=== PATIENT | female | born 1960 | race Caucasian/White ===

== ENCOUNTER 2018-10-14 13:53 | Emergency (ER) | payer BC ==
--- NOTE | 2018-10-14 14:37 | UC ---
Ear Complaint HPI - HPI Summary HPI Summary: Patient is 58 year old female, who present today to the urgent care with sinus pressure and headache along with fullness in bilateral ears with decreased hearing for past 7 days. She denies any ear pain. Headache is mainly localized in the frontal and left maxillary area and worsens with bending over. She does have sick contacts at work and her grandchildren with upper respiratory symptoms. She does have a history of sinusitis in the past. She denies any difficulty swallowing. Denies any fever, chills, cough chest pain or shortness of breath . No diaphoresis. Denies any abdominal pain , nausea or vomiting , diarrhea or constipation. Patient tried over the counter medication- NyQuil and DayQuil without much relief. - History of Current Complaint Stated Complaint: SINUSES/EAR ACHE Time Seen by Provider: 10/14/18 14:35 Hx Obtained From: Patient Hx Last Menstrual Period: 06/21/14 ?: No - Allergies/Home Medications Allergies/Adverse Reactions: Allergies Allergy/AdvReac Type Severity Reaction Status Date / Time latex Allergy Rash Verified 10/14/18 14:43 Penicillins Allergy Rash Verified 10/14/18 14:43 Sulfa (Sulfonamide Allergy Itching Verified 10/14/18 14:43 Antibiotics) Home Medications: Home Medications Biotin 1 mg PO DAILY 10/14/18 [History Confirmed 10/14/18] Bupropion XL* [Wellbutrin XL *] 150 mg PO DAILY 10/14/18 [History Confirmed 12/31] Cholecalciferol (Vitamin D3) [Vitamin D3] 5,000 unit PO DAILY 10/14/18 [History Confirmed 10/14/18] Docusate CAP* [Colace Cap*] 100 mg PO BID 10/14/18 [History Confirmed 10/14/18] FLUoxetine CAP* [PROzac CAP*] 40 mg PO DAILY 10/14/18 [History Confirmed ] Ferrous Sulfate [Iron] 325 mg PO DAILY 10/14/18 [History Confirmed 10/14/18] Vitamin B Complex CAP* [B Complex CAP*] 1 cap PO DAILY 10/14/18 [History Confirmed 10/14/18] PMH/Surg Hx/FS Hx/Imm Hx - Additional Past Medical History Additional PMH: Depression Anemia Sinusitis Previously Healthy: Yes Other Endocrine History: negative Other Cardiovascular History: negative Respiratory History: Other - Sinusitis - Surgical History Surgical History: Yes Surgery Procedure, Year, and Place: Right ankle surgery, gastric bypass, gallbladder removal, tubal ligationLASER - EYE SURGLt BREAST BIOPSY - W/ CLIP - Family History Known Family History: Positive: Hypertension, Other - mom lung CA - Social History Alcohol Use: Occasionally Substance Use Type: None Smoking Status (MU): Light Every Day Tobacco Smoker Type: Cigarettes Amount Used/How Often: 1/3 PPD Household Exposure Type: Cigarettes Review of Systems All Other Systems Reviewed And Are Negative: Yes Constitutional: Positive: Negative Skin: Positive: Negative Eyes: Positive: Negative ENT: Positive: Sinus Pain/Tenderness, Other - Fullness in the ear bilaterally Respiratory: Positive: Negative Cardiovascular: Positive: Negative Gastrointestinal: Positive: Negative Genitourinary: Positive: Negative Motor: Positive: Negative Neurovascular: Positive: Negative Musculoskeletal: Positive: Negative Neurological: Positive: Headache - Frontal headache Psychological: Positive: Negative Is Patient Immunocompromised?: No Physical Exam - Summary Physical Exam Summary: Physical Exam: Const: Appears well. No signs of apparent distress present. Alert and oriented x 3. Musculo: Walks with a normal gait. Head/Face: Atraumatic, normocephalic on inspection. Eyes: EOMI and PERRLA in both eyes. Conjunctivae clear. No discharge noted ENT: There is tenderness to palpation in bilateral frontal and left ethmoid sinus and the left maxillary sinus TM normal appearing bilaterally , external auditory canal without any lesion mild pharyngeal erythema, no exudates No lymphadenopathy Respiratory: Respirations are unlabored. Lungs clear to auscultation bilaterally, no wheezing , rhonchi or rales noted . CVS: Regular rate and Rhythm, S1S2 normal , no murmurs identified. Extremities: Peripheral circulation is grossly normal. Pulses 2+ Abdomen : Soft non tender , nondistended , Bowel sounds present . No guarding , rebound tenderness or rigidity noted. Skin: No lesions or rash located on the upper extremities or on the lower extremities. Neuro: Cranial nerves II to XII intact, motor and sensory intact. DTR Intact bilaterally. Mood is normal. Affect is normal. Triage Information Reviewed: Yes Vital Signs Reviewed: Yes Ear Complaint Course/Dx - Course Course Of Treatment: During the visit today, we discussed the findings and further plan. She is allergic to penicillin and sulfa, so plan to treat sinusitis with doxycycline. Fullness in the both ear and decreased hearing appears to be secondary to eustachian tube dysfunction.I will prescribe the medication to the pharmacy . Patient expressed understanding . - Differential Dx/Diagnosis Provider Diagnosis: Sinusitis, Eustachian tube dysfunction Discharge - Sign-Out/Discharge Documenting (check all that apply): Patient Departure All imaging exams completed and their final reports reviewed: No Studies - Discharge Plan Condition: Stable Disposition: HOME Prescriptions: DOXYcycline CAP(*) [DOXYcycline 100MG CAP(*)] 100 mg PO BID 14 Days #28 cap Patient Education Materials: Sinusitis (ED) Referrals: Shelton Berkowitz MD [Primary Care Provider] - 1 Week Additional Instructions: Please start taking the medication as prescribed to the pharmacy . Follow up with your primary care doctor in 1 week. Patients blood pressure slightly high in Urgent care today , plan follow up with PCP for better control Return to Urgent care / ER if symptoms get worse. - Billing Disposition and Condition Condition: STABLE Disposition: Home
[2018-10-14 14:39] VITALS: BP 143/80
== END 2018-10-14 15:00 | disposition home or self-care (01) ==
LOC: UCCORT 13:53
DX: J32.9 Chronic sinusitis, unspecified (principal); H69.83 Other specified disorders of Eustachian tube, bilateral; Z88.0 Allergy status to penicillin; Z88.2 Allergy status to sulfonamides; F32.9 Major depressive disorder, single episode, unspecified; D64.9 Anemia, unspecified; F17.210 Nicotine dependence, cigarettes, uncomplicated
CPT/HCPCS: 99212; G0463

== ENCOUNTER 2019-05-25 15:05 | Emergency (ER) | payer BC ==
--- NOTE | 2019-05-25 15:53 | UC ---
UC General HPI - HPI Summary HPI Summary: pt is c/o episodes of sharp pain in her L back x 3 days with urinary frequency, urgency and burning as well. the pain makes her "squirm" at times. she denies fever, abdominal pain n/v/d and hx kidney stones. no change with movement. no numb, tingling or weakness to her extremities. no bowel/bladder dysfunction and no saddle anesthesia. pt reports being in menopause x 3 months and is refusing a test. denies hx kidney stones. - History of Current Complaint Chief Complaint: UCGU Stated Complaint: URINARY Time Seen by Provider: 05/25/19 15:37 Hx Obtained From: Patient Hx Last Menstrual Period: 06/21/14 Pain Intensity: 4 Aggravating: nothing Alleviating: "squirming" - Allergy/Home Medications Allergies/Adverse Reactions: Allergies Allergy/AdvReac Type Severity Reaction Status Date / Time latex Allergy Rash Verified 05/25/19 15:22 Penicillins Allergy Rash Verified 05/25/19 15:22 Sulfa (Sulfonamide Allergy Itching Verified 05/25/19 15:22 Antibiotics) Home Medications: Home Medications Ibuprofen 800 mg PO ONCE 05/25/19 [History Confirmed 05/25/19] PMH/Surg Hx/FS Hx/Imm Hx - Additional Past Medical History Additional PMH: Iron deficiency anemia-prior hx transfusion GI/ History: Gastroesophageal Reflux Psychological History: Depression - Surgical History Surgical History: Yes Surgery Procedure, Year, and Place: Right ankle surgery, gastric bypass 2008, gallbladder removal, tubal ligation, LASER - EYE SURGLt BREAST BIOPSY - W/ CLIP - Family History Known Family History: Positive: Hypertension, Other - mom lung CA - Social History Lives: With Family Alcohol Use: Occasionally Substance Use Type: None Smoking Status (MU): Light Every Day Tobacco Smoker Type: Cigarettes Amount Used/How Often: 1/3 PPD Household Exposure Type: Cigarettes Review of Systems All Other Systems Reviewed And Are Negative: Yes Constitutional: Negative: Fever, Chills Skin: Negative: Rash Gastrointestinal: Negative: Abdominal Pain, Vomiting, Diarrhea, Nausea Genitourinary: Positive: Dysuria, Frequency, Urgency. Negative: Hematuria, Vaginal/Penile Discharge, Abnormal Bleeding Motor: Positive: Negative Neurovascular: Positive: Negative Musculoskeletal: Positive: Negative Physical Exam Triage Information Reviewed: Yes Appearance: Well-Appearing Vital Signs: Initial Vital Signs Temp 97.9 F 05/25/19 15:14 Pulse 87 05/25/19 15:14 Resp 16 05/25/19 15:14 BP 132/72 05/25/19 15:14 Pulse Ox 96 05/25/19 15:14 Vital Signs Reviewed: Yes Eyes: Positive: Conjunctiva Clear Neck: Positive: Supple, Other: - no c-spine tenderness. Respiratory: Positive: Lungs clear, Normal breath sounds, No respiratory distress Cardiovascular: Positive: RRR, No Murmur Abdomen Description: Positive: Nontender, No Organomegaly, Soft. Negative: CVA Tenderness (R), CVA Tenderness (L), Distended, Guarding Bowel Sounds: Positive: Present Musculoskeletal: Positive: Other: - Back: no deformity, swelling, tenderness or rash. ROM intact throughout and painless. s/v/m is intactx4. Neurological: Positive: Alert Psychological: Positive: Age Appropriate Behavior Skin Exam: Normal Skin: Negative: Rashes Diagnostics - Laboratory Lab Results: u/a=3+ leukocytes, 2+ blood, trace protein with culture pending. - Radiology No standard instances Radiology Interpretation Completed By: Radiologist - IMPRESSION: #. Severe pelvicaliectasis of the LEFT kidney. Only mild dilatation of the LEFT ureter. 0.15 cm far distal LEFT ureteral stone 1 cm from the ureterovesicular junction. While the stone may account for the hydroureteronephrosis given the disproportionate dilatation of the intrarenal collecting system and pelvis relative to the ureter there may also be a component of ureteropelvic junction stenosis. Absence of appreciable perinephric inflammatory stranding is further evidence against the severe pelvicaliectasis being solely attributable to acute ureteral stone. Re-Evaluation - Re-Evaluation Second Eval Change: Unchanged - pt has remained stable during her stay and declined pain medications. Third Eval Re-Evaluation Time: 19:24 Change: Unchanged - pt reports feeling fine post tx here. Course/Dx - Course Course Of Treatment: Case D/W Dr Yadav, [facility] supervisor [employer] urologist. I advised of pt hx, pe and read him the CT report and u/a findings. He request I tx the pt with Rocephin 2g iv or im and 2L NS IV. upon discharge, given prescription for pain medications and cefdinir 300mg BID x 7 days. pt is to call his office Monday am for f/u. If still having pain, they will see her that same day. If pt develops a fever >101, she is to go to the ER([facility]) immediately. Dr Mitchell request that I send a CBC and BMP as well. pcn allergy was hives as a child. - Differential Dx - Multi-Symptom Differential Diagnoses: Other - no s/s's of pyelonephritis - Diagnoses Provider Diagnosis: Ureteral calculus, left, Pelvicaliectasis, Dysuria Discharge - Sign-Out/Discharge Documenting (check all that apply): Patient Departure All imaging exams completed and their final reports reviewed: Yes - Discharge Plan Condition: Stable Disposition: HOME Prescriptions: Cefdinir [Cefdinir 300 MG CAP] 300 mg PO BID 7 Days #14 capsule Hydrocodone/Acetaminophen [Vicodin 5-300 mg Tablet] 1 each PO Q6H PRN #10 tablet MDD 4 PRN Reason: Pain Patient Education Materials: Dysuria (ED), Hydronephrosis (ED), Ureteral Stones (ED) Referrals: David Yadav MD [Medical Doctor] - Additional Instructions: CALL THE OFFICE MONDAY AM(05/27/19) FOR FOLLOW UP. PER DR LONG, GO TO THE ER FOR A FEVER GREATER THAN 101. - Billing Disposition and Condition Condition: STABLE Disposition: Home
[2019-05-25] MEDS ORDERED: NS 0.9% 1000 ML** 1,000 ML IV ONE ×2 (17:24→17:32)
[2019-05-25] MEDS ORDERED: cefTRIAXone VIAL(*) 1,000 MG VIAL IVPB ONE (17:26)
[2019-05-25 19:30] VITALS: BP 157/85
[2019-05-26 14:31] LABS: ABS Basophils 0.1 10^3/ul (0-0.2); ABS Eosinophils 0.2 10^3/ul (0-0.6); ABS Lymphocytes 2.4 10^3/ul (1.0-4.8); ABS Monocytes 1.2 10^3/ul (0-0.8); ABS Neutrophils 5.2 10^3/ul (1.5-7.7); Eosinophil % 2.4 %; Hematocrit 38 % (35-47); Hemoglobin 12.3 g/dL (12.0-16.0); Mean Corpuscular HGB Conc 32 g/dL (31-36); Mean Corpuscular Hemoglobin 26 pg (27-31); Mean Corpuscular Volume 80 fL (80-97); Mean Platelet Volume 9.7 fL (7.4-10.4); Nucleated Red Blood Cells % 0.2; Platelet Count 196 10^3/uL (150-450); Red Blood Count 4.77 10^6 /uL (3.70-4.87); Red Cell Distribution Width 21 % (10-15); White Blood Count 9.1 10^3/uL (3.5-10.8)
[2019-05-26 14:40] LABS: BUN/Creatinine Ratio 18.9 (8-20); Calcium 9.6 mg/dL (8.6-10.3); EGFR African American 97.9 (>60); EGFR Non-African American 80.9 (>60); Potassium 4.9 mmol/L (3.5-5.0)
== END 2019-05-25 19:30 | disposition home or self-care (01) ==
LOC: UCCORT 15:05
DX: N20.1 Calculus of ureter (principal); N13.0 Hydronephrosis with ureteropelvic junction obstruction; R30.0 Dysuria; F17.210 Nicotine dependence, cigarettes, uncomplicated
CPT/HCPCS: 36415; 74176; 80048; 81003; 85025; 87077; 87086; 87186; 96361; 96365; 99212; G0463; J0696

== ENCOUNTER → 2019-11-05 09:02 | Day surgery (SDC) | payer BC ==
--- NOTE | 2019-11-04 12:12 | HP ---
CC: Dr. Monica Fernández; Dr. Dio Valencia, Department of Urology, [facility]; Dr. Yadav ADMITTING HISTORY AND PHYSICAL: DATE OF ADMISSION: 11/05/19 ADMITTING DIAGNOSES: 1. Left hydronephrosis. 2. Probable left ureteropelvic junction obstruction. PLANNED PROCEDURE: Left retrograde left stent insertion (may need left pyeloplasty in the near futur e). SURGEON: Dr. Yadav. HISTORY OF PRESENT ILLNESS: Sera Varela is a 59-year-old lady who I had originally evaluated about 4 to 5 months ago because of left flank pain. She was noted at that time to have left hydronep hrosis with a tiny calculus in the left distal ureter. She had undergone left ureteroscopy and ballo on dilatation of narrowed left ureteropelvic junction and left stent insertion on 07/01/[address] was left in for several weeks and eventually removed on 08/23/19. She did well for the last 2 mo nths, but for the last few days started having increasing left flank discomfort and an ultrasound rev ealed recurrence of left hydronephrosis with increased renal cortical echogenicity and an absent left ureteral jet. PAST MEDICAL HISTORY: Significant for: 1. Left hydronephrosis. 2. Gastroesophageal reflux. 3. Depression. PAST SURGICAL HISTORY: Significant for: 1. Left stent insertion in June of 2019. 2. Gastric bypass in 2008. 3. Cholecystectomy. 4. Tubal ligation. 5. Right ankle fracture surgery. MEDICATIONS ON ADMISSION: 1. Prozac 40 mg a day. 2. Wellbutrin 100 mg daily. 3. Omeprazole 20 mg b.i.d. 4. Oxybutynin 5 mg b.i.d. ALLERGIES AND INTOLERANCES: SULFA, PENICILLIN, and LATEX (rash with all three). FAMILY HISTORY: Negative for renal calculi. SOCIAL HISTORY: Smoking history: She has been a smoker episodically for the last 30 years. REVIEW OF SYSTEMS: She is otherwise in excellent health. There is no history of diabetes mellitus o r any other major systemic illness. She denies any chest pain or shortness of breath. PHYSICAL EXAMINATION GENERAL: Reveals a pleasant, uncomfortable appearing middle-aged lady. VITAL SIGNS: Blood pressure is 136/80, pulse 73 per minute and regular, oxygen saturation 98% on gerson m air, and temperature 98.6. CARDIOVASCULAR: Regular rate and rhythm. S1, S2. ABDOMEN: Soft with left flank tenderness. IMPRESSION AND PLAN: A 59-year-old lady with recurrent left hydronephrosis and left flank pain. Pl anned procedure is left retrograde and left stent insertion. Depending on the findings on retrograde, she may be a candidate for a robotic left pyeloplasty, in which case I would refer her to Dr. Ronna bernard at [facility] for that. I have discussed this with the patient in detail. [id number]/[facility] #: [id number]
[~2019-11-05 09:02] MED LIST: Buffered Lidocaine 1% SYRIN* 1 ML/SYRINGE INTRADERM ONE; Dexamethasone IV* 4 MG/ML 1 ML (4 MG) IV SLOW PU ONE; Dexamethasone IV* 4 MG/ML 1 ML (4 MG) ONE; DiMENhydriNATE IV* 50 MG/ML VIAL IV PUSH PRN; Famotidine IV* 10 MG/ML 2 ML (20 mg) IV ONE; Famotidine IV* 10 MG/ML 2 ML (20 mg) ONE; Gentamicin ADULT (*) 160 MG in NS 0.9% 100 ML* 100 ML IVPB ONE; HYDROcodone/ACETAMIN 5-325 MG* 1 TAB PO PRN; Iohexol 180 (CONTRAST) 10 ML SDV IV ONE; Ketorolac INJ* 30 MG/ML 1 ML VIAL IV PRN; Lactated Ringers 1000 ML Bag* 1,000 ML IV SCH; Levofloxacin 500 MG IVPREMIX(* 500 MG/100 ML BAG IVPB ONE; Lidocaine 2% PF * 5 ML VIAL ONE; Midazolam* 1 MG/ML 5 ML VIAL (5 MG) ONE; Naloxone* 0.4 MG/ML 1 ML VIAL IV PRN; Ondansetron INJ* 2 MG/ML VIAL ONE; Propofol* 10 MG/ML 20 ML BTL ONE; fentaNYL* 50 MCG/ML 2 ML VIAL (100 MCG VIAL) IV PRN; fentaNYL* 50 MCG/ML 2 ML VIAL (100 MCG VIAL) ONE; oxyCODONE TAB* 5 MG TAB PO PRN
[2019-11-05 13:04] VITALS: BP 130/83
--- NOTE | 2019-11-05 20:53 | OP ---
CC: Dr. Fernández; Dr. Siva Valencia, Department of Urology, [facility]; Dr. Yadav* OPERATIVE REPORT: DATE OF OPERATION: 11/05/19 - [facility] DATE OF : 62 SURGEON: David Yadav MD ANESTHESIOLOGIST: Dr. Barber. ANESTHESIA: General. PRE-OP DIAGNOSES: 1. Left hydronephrosis. 2. Left ureteropelvic junction obstruction. POST-OP DIAGNOSES: 1. Left hydronephrosis. 2. Left ureteropelvic junction obstruction. OPERATIVE PROCEDURE: Cystoscopy, left retrograde pyelogram, left stent insertion. COMPLICATIONS: None. STENT USED: A 7-[place] Vermillion universal-length stent. OPERATIVE FINDINGS: Left hydronephrosis with a markedly dilated left renal pelvis and an appearance consistent with left ureteropelvic junction obstruction. POSTOPERATIVE CONDITION: Stable. INDICATION: Sera Varela is a 59-year-old lady who had previously undergone left stent insertion with improvement in the hydronephrosis. She subsequently underwent stent removal and did well for a few months, but recently started having recurrence of left flank pain and was noted to have left hydronephrosis. DESCRIPTION OF PROCEDURE: After induction of general anesthesia, the patient was placed in dorsal lithotomy position. Sequential compression devices were in place and functioning. Initial evaluation revealed a normal-appearing bladder with a couple of small areas of hyperemic mucosa which may be related to a recent infection. A left retrograde pyelogram revealed significant degree of left hydronephrosis with a dilated renal pelvis and narrowing at the ureteropelvic junction. The guidewire was advanced into the proximal collecting system and then a 7-[place] Vermillion stent was introduced and positioned under fluoroscopy with good proximal and distal positioning obtained. The bladder was emptied. The patient tolerated the procedure satisfactorily and was transferred back to the recovery area in stable condition. [id number]/[facility] #: [id number] MTDD
== END | disposition home or self-care (01) ==
LOC: OR 09:02
PROVIDERS: ATTEND Urology
DX: N13.0 Hydronephrosis with ureteropelvic junction obstruction (principal); K21.9 Gastro-esophageal reflux disease without esophagitis; F32.9 Major depressive disorder, single episode, unspecified; Z98.84 Bariatric surgery status; G47.33 Obstructive sleep apnea (adult) (pediatric); F17.200 Nicotine dependence, unspecified, uncomplicated
CPT/HCPCS: 74420; C2625; J1100; J1580; J1956; J2250; J2405; J2704; J3010